=== PATIENT | male | born 1945 | race Caucasian/White ===

== ENCOUNTER → 2016-10-09 | Emergency (ER) | payer OTHER ==
[~2016-10-09] MED LIST: AMOXICILLIN/CLAVULANATE POT 875/125 MG TAB PO ONE; TDAP ADULT 0.5 ML INJ (BOOSTRIX) IM ONE
[2016-10-09 12:01] VITALS: TEMP 98.2; O2SAT 96
--- NOTE | 2016-10-09 12:40 | EDPHY ---
H & P Time Seen by Provider: 10/09/16 11:59 HPI/ROS: CHIEF COMPLAINT: Dog bite right arm HISTORY OF PRESENT ILLNESS: 71-year-old male presents to the emergency department by private vehicle with a dog bite to his right arm. The patient states that he was walking down the street and there was dog that was on a leash tied to a railing and the dog lunged at the patient while he was walking by and bit him in his right arm. He contacted the police and while the police were taking a report from the patient as well as the dog business owner/engineer who was present, the dog also bit another person who was walking by. He believes his tetanus shot is current. He is left-hand dominant. He denies any other trauma or injury. 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 ROS: Denies numbness or tingling in his fingers, pain in his right elbow or shoulder. Past Medical/Surgical History: Hip replacement Social History: Lives in Distant Smoking Status: Never smoked Physical Exam: On examination the patient has a skin tear to the dorsal, distal aspect of the right forearm measuring approximately 2 cm. He also has a small puncture wound to the distal, dorsal medial aspect of the right wrist and dorsal aspect of the right wrist near the base of the hand. There is also a very small puncture wound to the palmar aspect of the base of the hand the right wrist. No active bleeding noted. No evidence of retained foreign body. No palpable bony tenderness. He does have pain with range of motion. He has normal sensation to light touch with normal 2 point discrimination. Strong radial pulses felt at the right wrist. Constitutional: Initial Vital Signs Temperature (C) 36.8 C 10/09/16 11:59 Heart Rate 64 10/09/16 11:59 Respiratory Rate 16 10/09/16 11:59 Blood Pressure 181/96 H 10/09/16 11:59 O2 Sat (%) 96 10/09/16 11:59 O2 Delivery Mode Room Air Allergies/Adverse Reactions: No Known Allergies Allergy (Unverified 08/07/11 07:27) Home Medications: Medication Instructions Recorded Glucosamine/Chondroitin/Msm 1 tab PO BID 07/28/11 Ibuprofen [Motrin 200 mg (OTC)] 400 - 800 mg PO DAILY 07/28/11 Multivitamins [Multivitamin (OTC)] 1 each PO DAILY 07/28/11 Pharmacy Completed 07/28/11 07/28/11 Amoxicillin/Clavulanate Pot 875 mg PO BID #10 tab 10/09/16 [Augmentin 875 mg tab] MDM/Departure - MDM Imaging: I viewed and interpreted images myself Procedures: Wounds were thoroughly irrigated and dressed with bacitracin and dressing. Medications Given: Discontinued Medications Amoxicillin/Clavulanate Potassium (Augmentin 875mg) 875 mg PO EDNOW ONE PRN Reason: Protocol Stop: 10/09/16 12:56 Last Admin: 10/09/16 13:07 Dose: 875 mg ED Course/Re-evaluation: 71-year-old male presents to the emergency department by private vehicle with a dog bite. The patient understands that the wounds will not require sutures. He will be started on Augmentin and was given a prescription. The patient believes his tetanus shot is current and will call to verify this and update this within 72 hours if needed. - Depart Disposition: Home, Routine, Self-Care Clinical Impression: Dog bite of right wrist Qualifiers: Encounter type: initial encounter Qualified Code(s): S61.551A - Open bite of right wrist, initial encounter Condition: Good Instructions: Animal Bite (ED) Additional Instructions: Augmentin 875mg twice daily for 5 days to prevent infection. Return if you develop redness, swelling, increased pain, fever, purulent drainage, lymphangitis, or if you feel worse in any way. Prescriptions: Amoxicillin/Clavulanate Pot [Augmentin 875 mg tab] 875 mg PO BID #10 tab
[2016-10-09 13:10] VITALS: BP 160/91; PULSE 63; RESP 18
== END | disposition home or self-care (01) ==
LOC: EDUNIT#
DX: S61.551A Open bite of right wrist, initial encounter (principal); W54.0XXA Bitten by dog, initial encounter; Y92.410 Unspecified street and highway as the place of occurrence of the external cause; Y99.8 Other external cause status; Y93.01 Activity, walking, marching and hiking